=== PATIENT | male | born 1990 | race Caucasian/White ===

== ENCOUNTER 2018-04-02 01:57 | Emergency (ER) | payer OTHER ==
--- NOTE | 2018-04-02 02:01 | EDM.PDOC ---
ED HPI GENERAL MEDICAL PROBLEM - General Stated Complaint: THROWING UP Time Seen by Provider: 04/02/18 02:00 Source of Information: Reports: Patient History Limitations: Reports: No Limitations - History of Present Illness INITIAL COMMENTS - FREE TEXT/NARRATIVE: HISTORY AND PHYSICAL: History of present illness: 28-year-old male presenting to emergency department with nausea, vomiting, and diarrhea starting at 10 PM last evening. Patient states that at abruptly 10 PM last evening he began to have diarrhea as well as nausea and vomiting. This continued and only worsened so he came to the emergency department for further evaluation. Denies any associated fever, chills , abdominal pain, cough, or other signs of systemic infection. States he ate at [employer] last evening. No other close contacts have had similar symptoms. Patient is originally from [facility] and flew here on Friday. Reports no recent foreign travel, camping, or other significant change in diet. Patient does have a history of a Jazmin fundoplication secondary to GERD. This procedure was done last year. He denies any bloody stool or dark tarry stools. He also reports no blood in vomitus. Otherwise patient is healthy and takes no regular medications. Currently denies any chest pain, palpitations, shortness of breath, syncopal episodes, focal neurologic deficits. On initial exam patient is actively nauseous with vomiting. Otherwise patient is mildly diaphoretic but no other significant findings on exam. Initial CBC showed leukocytosis of 15,000 however patient has remained febrile and reports no fever and chills. This is most likely secondary to his current retching with his vomiting. Review of systems: As per history of present illness and below otherwise all systems reviewed and negative. Past medical history: As per history of present illness and as reviewed below otherwise noncontributory. Surgical history: As per history of present illness and as reviewed below otherwise noncontributory. Social history: No reported history of drug or alcohol abuse. Family history: As per history of present illness and as reviewed below otherwise noncontributory. Physical exam: HEENT: Atraumatic, normocephalic, pupils reactive, negative for conjunctival pallor or scleral icterus, mucous membranes moist, throat clear, neck supple, nontender, trachea midline. Lungs: Clear to auscultation, breath sounds equal bilaterally, chest nontender. Heart: S1S2, regular, negative for clicks, rubs, or JVD. Abdomen: Soft, nondistended, nontender. Negative for masses or hepatosplenomegaly. Negative for costovertebral tenderness. Pelvis: Stable nontender. Genitourinary: Deferred. Rectal: Deferred. Extremities: Atraumatic, negative for cords or calf pain. Neurovascular unremarkable. Neuro: Awake, alert, oriented. Cranial nerves II through XII unremarkable. Cerebellum unremarkable. Motor and sensory unremarkable throughout. Exam nonfocal. Diagnostics: CBC, CMP, lipase, stool culture, UA/UC Therapeutics: 1 L normal saline, 8 mg IV Zofran 1 Impression: Nausea with vomiting Diarrhea Gastroenteritis Plan: As above CBC did show mild leukocytosis but most likely secondary to his active vomiting as he remained afebrile and reported no history of fever or chills. CMP , lipase, UA were all unremarkable. Patient most likely had gastroenteritis. I do somewhat believe that this may have been secondary to recent food ingestion as his symptoms came on suddenly with no symptoms. Patient improved with 1 L normal saline as well as 8 mg of IV Zofran. He was discharged in good condition with a prescription for Zofran ODT with instructions to follow-up with his primary care provider, continue to push fluids, and return to emergency department if any new or worsening symptoms. Definitive disposition and diagnosis as appropriate pending reevaluation and review of above. abdominal Pain Score (Numeric/FACES): 5 - Related Data Allergies Allergy/AdvReac Type Severity Reaction Status Date / Time bacitracin Allergy Rash Verified 04/02/18 02:15 [From Neosporin ([id number])] cefaclor [From Ceclor] Allergy Rash Verified 04/02/18 02:15 neomycin Allergy Rash Verified 04/02/18 02:15 [From Neosporin ([id number])] polymyxin B Allergy Rash Verified 04/02/18 02:15 [From Neosporin ([id number])] Home Meds: Home Meds . [No Known Home Meds] 04/02/18 [History] ED ROS GENERAL - Review of Systems Review Of Systems: ROS reveals no pertinent complaints other than HPI. ED EXAM, GENERAL - Physical Exam Exam: See Below Course - Vital Signs Last Recorded V/S: Last Vital Signs Temp 97.6 F 04/02/18 02:11 Pulse 111 H 04/02/18 02:11 Resp 19 04/02/18 02:11 BP 138/93 H 04/02/18 02:11 Pulse Ox 100 04/02/18 02:11 - Orders/Labs/Meds Orders: Active Orders 24 hr Category Date Time Status CULTURE STOOL + CAMPY+SHIGATOX [] Stat Lab 04/02/18 02:21 Ordered CULTURE URINE [] Stat Lab 04/02/18 02:43 Received Sodium Chloride 0.9% [Normal Saline] 1,000 ml Med 04/02/18 02:15 Active IV STAT Medication Orders Sodium Chloride (Normal Saline) 1,000 mls @ 999 mls/hr IV STAT ONE Stop: 04/02/18 03:15 Last Admin: 04/02/18 02:24 Dose: 999 mls/hr Labs: Laboratory Tests 04/02/18 04/02/18 04/02/18 Range/Units 02:23 02:23 02:43 WBC 15.85 H (4.0-11.0) K/uL RBC 6.11 H (4.50-5.90) M/uL Hgb 17.9 H (13.0-17.0) g/dL Hct 49.5 (38.0-50.0) % MCV 81.0 (80.0-98.0) fL MCH 29.3 (27.0-32.0) pg MCHC 36.2 (31.0-37.0) g/dL RDW Std Deviation 37.3 (28.0-62.0) fl RDW Coeff of Amberly 13 (11.0-15.0) % Plt Count 167 (150-400) K/uL MPV 11.20 (7.40-12.00) fL Neut % (Auto) 91.2 H (48.0-80.0) % Lymph % (Auto) 5.2 L (16.0-40.0) % [place]born % (Auto) 3.0 (0.0-15.0) % Eos % (Auto) 0.4 (0.0-7.0) % Baso % (Auto) 0.2 (0.0-1.5) % Neut # (Auto) 14.5 H (1.4-5.7) K/uL Lymph # (Auto) 0.8 (0.6-2.4) K/uL Sanborn # (Auto) 0.5 (0.0-0.8) K/uL Eos # (Auto) 0.1 (0.0-0.7) K/uL Baso # (Auto) 0.0 (0.0-0.1) K/uL Nucleated RBC % 0.0 /100WBC Nucleated RBCs # 0 K/uL Sodium 143 (136-148) mmol/L Potassium 4.1 (3.5-5.1) mmol/L Chloride 102 (98-107) mmol/L Carbon Dioxide 27.2 (21.0-32.0) mmol/L BUN 20 H (7.0-18.0) mg/dL Creatinine 1.3 (0.8-1.3) mg/dL Est Cr Clr Drug Dosing 88.91 mL/min Estimated GFR (MDRD) > 60.0 ml/min Glucose 129 H (74-106) mg/dL Calcium 9.9 (8.5-10.1) mg/dL Total Bilirubin 1.2 H (0.2-1.0) mg/dL AST 18 (15-37) IU/L ALT 30 (14-63) IU/L Alkaline Phosphatase 81 (46-116) U/L Total Protein 8.6 H (6.4-8.2) g/dL Albumin 5.4 H (3.4-5.0) g/dL Globulin 3.2 (2.0-3.5) g/dL Albumin/Globulin Ratio 1.7 (1.3-2.8) Lipase 100 (73-393) U/L Urine Color YELLOW Urine Appearance CLEAR Urine pH 7.0 (5.0-8.0) Ur Specific [place] 1.020 (1.001-1.035) Urine Protein NEGATIVE (NEGATIVE) mg/dL Urine Glucose (UA) NEGATIVE (NEGATIVE) mg/dL Urine Ketones TRACE H (NEGATIVE) mg/dL Urine Occult Blood NEGATIVE (NEGATIVE) Urine Nitrite NEGATIVE (NEGATIVE) Urine Bilirubin NEGATIVE (NEGATIVE) Urine Urobilinogen 0.2 (<2.0) EU/dL Ur Leukocyte Esterase NEGATIVE (NEGATIVE) Urine RBC NONE SEEN (0-2/HPF) Urine WBC 0-1 (0-5/HPF) Ur Epithelial Cells RARE (NONE-FEW) Urine Bacteria FEW (NEGATIVE) Urine Mucus LIGHT (NONE-MOD) Meds: Medications Generic Name Dose Route Start Last Admin Trade Name Freq PRN Reason Stop Dose Admin Sodium Chloride 1,000 mls @ 999 mls/hr 04/02/18 02:15 04/02/18 02:24 Normal Saline IV 04/02/18 03:15 999 mls/hr STAT ONE Administration Discontinued Medications Generic Name Dose Route Start Last Admin Trade Name Freq PRN Reason Stop Dose Admin Ondansetron HCl 8 mg 04/02/18 02:15 04/02/18 02:24 Zofran IVPUSH 04/02/18 02:16 8 mg ONETIME ONE Administration Departure - Departure Time of Disposition: 03:10 Disposition: Home, Self-Care 01 Condition: Good Clinical Impression: Gastroenteritis Nausea and vomiting Qualifiers: Vomiting type: bilious vomiting Qualified Code(s): R11.14 - Bilious vomiting Diarrhea Qualifiers: Diarrhea type: unspecified type Qualified Code(s): R19.7 - Diarrhea, unspecified - Discharge Information Referrals: PCP,None [Primary Care Provider] - Additional Instructions: My general discharge The following information is given to patients seen in the emergency department who are being discharged to home. This information is to outline your options for follow-up care. We provide all patients seen in our emergency department with a follow-up referral. The need for follow-up, as well as the timing and circumstances, are variable depending upon the specifics of your emergency department visit. If you don't have a primary care physician on staff, we will provide you with a referral. We always advise you to contact your personal physician following an emergency department visit to inform them of the circumstance of the visit and for follow-up with them and/or the need for any referrals to a consulting specialist. The emergency department will also refer you to a specialist when appropriate. This referral assures that you have the opportunity for follow-up care with a specialist. All of these measure are taken in an effort to provide you with optimal care, which includes your follow-up. Under all circumstances we always encourage you to contact your private physician who remains a resource for coordinating your care. When calling for follow-up care, please make the office aware that this follow-up is from your recent emergency room visit. If for any reason you are refused follow-up, please contact the [facility] Emergency Department at and asked to speak to the emergency department charge nurse. [facility] [address] [place] [id number] Please follow-up with your primary care provider when you return to [place]. Take medication as prescribed. Continue to push fluids to prevent dehydration. Return emergency department if any new or worsening symptoms. - My Orders Last 24 Hours: My Active Orders 04/02/18 02:15 Sodium Chloride 0.9% [Normal Saline] 1,000 ml IV STAT 04/02/18 02:21 CULTURE STOOL + CAMPY+SHIGATOX [RM] Stat 04/02/18 02:43 CULTURE URINE [RM] Stat - Assessment/Plan Last 24 Hours: My Active Orders 04/02/18 02:15 Sodium Chloride 0.9% [Normal Saline] 1,000 ml IV STAT 04/02/18 02:21 CULTURE STOOL + CAMPY+SHIGATOX [RM] Stat 04/02/18 02:43 CULTURE URINE [RM] Stat
[2018-04-02] MEDS ORDERED: Sodium Chloride 0.9% 1,000 ML IV ONE ×2 (02:15→03:14)
[2018-04-02] MEDS ORDERED: Ondansetron 4 MG/2 ML SDV IVPUSH ONE (02:15)
[2018-04-02 03:05] LABS: CHLORIDE,CL 102 mmol/L (98-107); SODIUM,NA 143 mmol/L (136-148)
[2018-04-02] MEDS ORDERED: Metoclopramide 10 MG/2 ML SDV IV ONE (03:14)
[2018-04-02] MEDS ORDERED: diphenhydrAMINE 50 MG/ML SDV IVPUSH ONE (03:19)
== END 2018-04-02 04:30 | disposition home or self-care (01) ==
LOC: MW.ED 01:57
DX: K52.9 Noninfective gastroenteritis and colitis, unspecified (principal)
CPT/HCPCS: 36415; 80053; 81001; 83690; 85025; 87086; 96361; 96374; 96375; 99284; J1200; J2405; J2765; J7040; 99283